=== PATIENT | female | born 1955 | race Caucasian/White ===

== ENCOUNTER 2017-08-07 11:06 | Outpatient (CLI) | payer BC ==
--- NOTE | 2017-08-07 12:59 | MMO ---
BILATERAL DIGITAL SCREENING MAMMOGRAMS: HISTORY: This 62-year-old female presents for digital screening mammography. COMPARISON: 08/02/16, 07/23/15, 01/19/14. This patient's mammogram is interpreted with the assistance of computer-aided detection. Scattered areas of fibroglandular density are noted bilaterally. No direct or indirect evidence of m alignancy. Stable typically benign calcifications in the right breast. There is motion artifact on the left MLO view which needs to be repeated. IMPRESSION: BI-RADS category 0, assessment is incomplete. Needs additional imaging evaluation. Repeat left MLO view is needed because of motion artifact. POS: [facility]
== END 2017-08-07 11:07 | disposition home or self-care (01) ==
LOC: SCSMAMMO 11:06
PROVIDERS: ATTEND Family Medicine
DX: Z12.31 Encounter for screening mammogram for malignant neoplasm of breast (principal)
CPT/HCPCS: 77067; G0202

== ENCOUNTER 2017-08-14 09:42 | Outpatient (CLI) | payer BC ==
--- NOTE | 2017-08-14 11:01 | MMO ---
DIAGNOSTIC LEFT MAMMOGRAM: Date: 08/14/17 Diagnostic exam is performed as recommended from the exam of 08/07/17. The left MLO view is repeated due to motion artifact on the screening exam. FINDINGS: Repeat left MLO shows no significant motion artifact. There is no mass, distortion, or suspicious dav cification. Recommend patient be returned to routine follow-up. IMPRESSION: BIRADS 1: Negative POS: [facility]
== END 2017-08-14 09:43 | disposition home or self-care (01) ==
LOC: MAMMO 09:42
PROVIDERS: ATTEND Family Medicine
DX: R92.8 Other abnormal and inconclusive findings on diagnostic imaging of breast (principal)
CPT/HCPCS: G0206-LT

== ENCOUNTER 2018-03-12 08:52 | Outpatient (CLI) | payer BC, OTHER ==
--- NOTE | 2018-03-12 12:06 | CT ---
ABDOMEN CT WITH AND WITHOUT CONTRAST PELVIC CT WITH AND WITHOUT CONTRAST: History: Microscopic hematuria. Technique: Abdomen and pelvic CT performed with and without IV contrast. Coronal reformatted images a re submitted for interpretation. FINDINGS: ABDOMEN CT: Lung bases are clear. Heart size is normal. No significant pericardial fluid. The descending thoracic aorta and abdominal aorta have an overall normal caliber. No periaortic fat stranding. Gallbladder is unremarkable. Intra and extrahepatic portal vein is patent. There is a cyst in the left hepatic lobe measuring 2.8 x 2.7 cm. The liver, spleen, pancreas, and adr enal glands have appropriate enhancement. No hiatal hernia is noted. No gastrohepatic, retrocrural, or periportal lymphadenopathy. No mass, lymphadenopathy, free air or free fluid. Limited evaluation of the alimentary due to lack of oral contrast. No evidence of bowel obstruction. Ileocecal junction is normal. Minimal diverticulosis without evidence of diverticulitis. Normal calib er appendix. Bilaterally, no hydronephrosis. No perinephric fat stranding. Symmetric enhancement of the kidneys. S ymmetric excretion of the decompressed intrarenal collecting system. Bilateral ureters have a normal caliber. No hydroureter, or periureteral fat stranding. No filling defects in the opacified extrarena l collecting systems. PELVIC CT: No mass, lymphadenopathy, free air or free fluid. Contrast is noted in the dependent portion of the u rinary bladder. Uterus is surgically absent. No lytic or blastic lesions of the osseous structures. IMPRESSION: 1. No evidence of obstructive uropathy. Symmetric enhancement of the kidneys. 2. Unremarkable urinary bladder. POS: [facility]
== END 2018-03-12 08:53 | disposition home or self-care (01) ==
LOC: CT 08:52
PROVIDERS: ATTEND Urology
DX: R31.9 Hematuria, unspecified (principal); Z72.0 Tobacco use
CPT/HCPCS: 74178; 82565

== ENCOUNTER 2018-10-04 08:26 | Outpatient (CLI) | payer BC ==
--- NOTE | 2018-10-04 10:01 | CT ---
ABDOMEN CT WITH CONTRAST: Date: 10/04/18 HISTORY: Evaluate hepatic cyst. COMPARISON: 03/12/18. FINDINGS: There is a 7.0 mm opacity in the middle lobe and a 1.0 cm opacity in the right lower lobe. Both lesio ns are incompletely evaluated. Heart size is normal. No pericardial fluid. Portal vein is patent. Unr emarkable gallbladder. Spleen, pancreas, and adrenal glands have appropriate enhancement. Symmetric e nhancement of the kidneys. No obstructive uropathy. No gastrohepatic, retrocrural, or periportal lymphadenopathy. Redemonstration of a hypodensity in the left hepatic lobe measuring 2.2 x 2.5 cm (previously measurin g 2.7 x 2.7 cm). Attenuation coefficient is 11 Hounsfield units, compatible with a cyst. Additional h epatic lesions are not appreciated. No mesenteric mass, lymphadenopathy, free air, or free fluid. Visualized alimentary canal is unremarkable. No evidence of bowel obstruction. Visualized appendix kimball s a normal caliber. No lytic or blastic lesions in the osseous structures. IMPRESSION: 1. Redemonstration of a hepatic cyst. 2. Indeterminate and incompletely evaluated lesions in the right lung. Dedicated chest CT is recomme nded. CODE T. POS: [facility]
[2018-10-04] MEDS ORDERED: ISOVUE-370 76%-LOCM 1 ML ONE (10:05)
== END 2018-10-04 08:27 | disposition home or self-care (01) ==
LOC: BICCT 08:26
PROVIDERS: ATTEND Family Medicine
DX: K76.89 Other specified diseases of liver (principal); R91.1 Solitary pulmonary nodule
CPT/HCPCS: 74160; 82565

== ENCOUNTER 2018-10-15 12:32 | Outpatient (CLI) | payer BC ==
[2018-10-15] MEDS ORDERED: ISOVUE-370 76%-LOCM 1 ML ONE (13:19)
--- NOTE | 2018-10-15 15:32 | CT ---
CT THORAX WITH IV CONTRAST: 10/15/2018 HISTORY: Lung nodule seen on recent CT scan examination. CT thorax is recommended. COMPARISON: CT abdomen on 10/04/2018. FINDINGS: The previously described pulmonary nodule in the right middle lobe, which abuts the minor fissure, is again seen. No additional noncalcified pulmonary nodule or mass is seen. There is minimal dependent atelectasis. A calcified granuloma is seen in the right middle lobe, as w ell as in the lingula. No pleural effusion is seen. There are calcified mediastinal and hilar lymph nodes. Non-specific nonenlarged lymph nodes are seen within the mediastinum. Vascular calcifications are seen in the coronary arteries, as well as involving the thoracic aorta. The thoracic aorta is normal in caliber. The fluid attenuation cystic lesion in the lateral segment, left hepatic lobe, is again seen, compati ble with a cyst. There has been interval development of a wedge-shaped area of diminished attenuation seen within the superior pole of the spleen, which was not seen on the recent study of 10/04/2018. Findings may be r elated to an area of splenic infarction. The remainder of the visualized upper abdomen demonstrates a normal CT appearance. A hiatal hernia i s again present. The osseous structures are intact. IMPRESSION: 1. Interval development of a wedge-shaped, low density area of absent enhancement within the superio r pole of the spleen. This may represent an area of splenic infarction. 2. Small, pleural-based pulmonary nodule in the right middle lobe which does abut the minor fissure. Follow-up evaluation in six months is recommended. No additional noncalcified pulmonary nodule is seen. 3. Small hiatal hernia. 4. Evidence of prior granulomatous disease. 5. Above findings discussed with Dr. Mona Wadsworth on 10/16/18 at 9:52 hours. POS: [facility]
== END 2018-10-15 12:33 | disposition home or self-care (01) ==
LOC: BICCT 12:32
PROVIDERS: ATTEND Family Medicine
DX: R91.8 Other nonspecific abnormal finding of lung field (principal); K44.9 Diaphragmatic hernia without obstruction or gangrene; D71 Functional disorders of polymorphonuclear neutrophils
CPT/HCPCS: 71260; Q9966

== ENCOUNTER 2019-05-27 10:18 | Outpatient (CLI) | payer BC ==
--- NOTE | 2019-05-27 10:38 | ULT ---
US Renal Bilateral STANDARD History: Chronic kidney disease. Hypertension. Comparison: CT abdomen October 04, 2018 Findings: Real-time grayscale and color evaluation of the kidneys and urinary bladder was performed. Right kidney measures 10.1 x 4.6 x 4 cm and the left kidney measures 9.3 x 5.1 x 4.4 cm. Prevoid urin rabia bladder volume is 120 mL. No renal mass, hydronephrosis, or abnormal calcifications. Impression: Normal renal ultrasound.
== END 2019-05-27 10:19 | disposition home or self-care (01) ==
LOC: BICULT 10:18
PROVIDERS: ATTEND Internal Medicine Nephrology
DX: I12.9 Hypertensive chronic kidney disease with stage 1 through stage 4 chronic kidney disease, or unspecified chronic kidney disease (principal); N18.3 Chronic kidney disease, stage 3 (moderate)
CPT/HCPCS: 76770

== ENCOUNTER 2019-07-31 08:12 | Outpatient (CLI) | payer BC ==
--- NOTE | 2019-07-31 09:33 | CT ---
CT CHEST WITH IV CONTRAST: DATE: 07/31/2019. COMPARISON: 10/15/2018. HISTORY: Reevaluate pulmonary nodule. TECHNIQUE: Axial CT imaging at 3 mm intervals through the chest with IV contrast. Coronal and sagittal reformatt ed imaging obtained. FINDINGS: There is a small sliding-type hiatal hernia present. There is a low-density lesion within the anterior aspect of the left hepatic lobe with Hounsfield uni ts consistent with a cyst measuring 2.3 cm in AP dimension. There is scattered atherosclerotic calcification of the proximal abdominal aorta and its branches. No pleural, pericardial, or mediastinal fluid noted. No axillary, mediastinal, or hilar lymphadenopathy. Calcified lymph nodes are noted in the AP window and subcarinal region, evidence of granulomatous disease. There is atherosclerotic calcification of the aortic arch and coronary arteries. No pneumothorax. No significant pulmonary parenchymal nodule is noted within the right upper or right lower lobe. A ri ght middle lobe granuloma is noted on image 61. There is a stable nodule within the superior lateral anterior aspect of the right middle lobe measuring 7 mm, unchanged when compared to the 2018 study. There is a small nodule within the medial anterior aspect of the left upper lobe abutting the mediast inum measuring approximately 6 mm, stable. There is a stable posterior nodule within the posterior aspect of the left upper lobe on image 35 measuring approximately 6 mm. Small peripheral inferior lef t upper lobe nodule noted on image 59 measuring 6 mm, stable as well. No new pulmonary nodule noted on either side. Review of the osseous structures demonstrates no acute findings. IMPRESSION: Numerous stable pulmonary parenchymal nodules. CT examination in 6-12 months is advised to document s tability. Transcribed Date/Time: 07/31/2019 10:00 AM
[2019-07-31] MEDS ORDERED: Iopamidol-370 76% 500 ML 1 ML ONE (15:07)
== END 2019-07-31 08:13 | disposition home or self-care (01) ==
LOC: BICCT 08:12
PROVIDERS: ATTEND Family Medicine
DX: R91.8 Other nonspecific abnormal finding of lung field (principal)
CPT/HCPCS: 71260; Q9967

== ENCOUNTER 2019-08-11 07:58 | Outpatient (CLI) | payer BC ==
--- NOTE | 2019-08-11 09:06 | MMO ---
Bilateral MAMMO Bilat Screen [facility]. CLINICAL HISTORY: Patient is 64 years old and is seen for screening. The patient has no family history of breast cancer. The patient has no personal history of cancer. VIEWS: The views performed were: bilateral craniocaudal with tomosynthesis and bilateral mediolateral oblique with tomosynthesis. FILMS COMPARED: The present examination has been compared to prior imaging studies performed at [facility] on 07/23/2015, 08/02/2016 and 08/07/2017, and at [facility] on 08/14/2017. This study has been interpreted with the assistance of computer-aided detection. MAMMOGRAM FINDINGS: There are scattered fibroglandular densities. There are no suspicious masses, suspicious calcifications, or new areas of architectural distortion. IMPRESSION: THERE IS NO MAMMOGRAPHIC EVIDENCE OF MALIGNANCY. A ROUTINE FOLLOW-UP MAMMOGRAM IN 1 YEAR IS RECOMMENDED. THE RESULTS OF THIS EXAM WERE SENT TO THE PATIENT. ACR BI-RADS Category 1 - Negative MAMMOGRAPHY NOTE: 1. A negative mammogram report should not delay a biopsy if a dominant of clinically suspicious mass is present. 2. Approximately 10% to 15% of breast cancers are not detected by mammography. 3. Adenosis and dense breasts may obscure an underlying neoplasm. Reported by: YASHIRA TRIPATHI MD Electonically Signed: [id number]
== END 2019-08-11 07:59 | disposition home or self-care (01) ==
LOC: BICMAMMO 07:58
PROVIDERS: ATTEND Family Medicine
DX: Z12.31 Encounter for screening mammogram for malignant neoplasm of breast (principal)
CPT/HCPCS: 77063; 77067

== ENCOUNTER 2020-05-19 09:00 | Outpatient (CLI) | payer MEDICARE, BC ==
--- NOTE | 2020-05-19 09:49 | CT ---
EXAM: CT chest without contrast per low-dose cancer screening protocol HISTORY: History of smoking and nicotine dependence COMPARISON: None TECHNIQUE: Multiple contiguous axial images were obtained in a CT of the chest without contrast per l ow-dose cancer screening protocol. Sagittal and coronal reformats were performed. FINDINGS: Pulmonary nodules: A calcified granuloma seen in the right middle lobe. There is a 6 mm noncalcified nodule in the superior aspect of the right middle lobe. No focal infiltrates are seen. Pleural space: No pneumothorax or pleural effusion are seen. There is a focal area of pleural thicken ing along the mediastinum in the lingula. Heart: The heart is normal in size. Calcifications are seen in the coronary arteries and aorta. Mediastinum: No hilar or mediastinal lymphadenopathy appreciated on this limited noncontrast examinat ion. Calcified hilar and mediastinal lymph nodes are seen. Bones: Degenerative changes in the spine. Visualized subdiaphragmatic structures: 2.9 cm left hepatic cyst. IMPRESSION: Lung RADS category 3-probably benign. A follow-up low-dose CT is recommended in 6 months to follow th e noncalcified right middle lobe nodule.
== END 2020-05-19 09:01 | disposition home or self-care (01) ==
LOC: BICCT 09:00
PROVIDERS: ATTEND Family Medicine
DX: Z12.2 Encounter for screening for malignant neoplasm of respiratory organs (principal); F17.210 Nicotine dependence, cigarettes, uncomplicated; R91.1 Solitary pulmonary nodule
CPT/HCPCS: G0297

== ENCOUNTER 2020-11-10 10:25 | Outpatient (CLI) | payer MEDICARE, BC ==
--- NOTE | 2020-11-10 11:35 | MMO ---
Bilateral MAMMO Bilat Screen [facility]. CLINICAL HISTORY: Patient is 65 years old and is seen for screening. The patient has no family history of breast cancer. The patient has no personal history of cancer. VIEWS: The views performed were: bilateral craniocaudal with tomosynthesis and bilateral mediolateral oblique with tomosynthesis. FILMS COMPARED: The present examination has been compared to prior imaging studies performed at [facility] on 08/02/2016 and 08/07/2017, and at [facility] on 08/14/2017 and 08/11/2019. This study has been interpreted with the assistance of computer-aided detection. MAMMOGRAM FINDINGS: There are scattered fibroglandular densities. There are no suspicious masses, suspicious calcifications, or new areas of architectural distortion. IMPRESSION: THERE IS NO MAMMOGRAPHIC EVIDENCE OF MALIGNANCY. A ROUTINE FOLLOW-UP MAMMOGRAM IN 1 YEAR IS RECOMMENDED. THE RESULTS OF THIS EXAM WERE SENT TO THE PATIENT. ACR BI-RADS Category 1 - Negative MAMMOGRAPHY NOTE: 1. A negative mammogram report should not delay a biopsy if a dominant of clinically suspicious mass is present. 2. Approximately 10% to 15% of breast cancers are not detected by mammography. 3. Adenosis and dense breasts may obscure an underlying neoplasm. Reported by: HOWARD FARRIS MD Electonically Signed: [id number]
--- NOTE | 2020-11-10 12:28 | CT ---
Exam: Noncontrast chest CT; CT lung scan low dose HISTORY:Patient is currently a smoker. Less than 1 pack a day. Patient has smoked for 35 years. Nicot ine dependence. 6 mm nodule noted on the previous screening CT. COMPARISON: 10/15/2018, 05/19/2020. TECHNIQUE: Low-dose screening lung CT is performed utilizing institutional protocol FINDINGS: Lung screening specific (Lung-RADS): 2 - benign appearance or behavior. There is a solid nodule in th e middle lobe which measures 0.7 cm and is unchanged since the examination from 10/04/2018. There is greater than two years of stability. No new or suspicious nodules in the left or right lung parenchym a. Potential significant incidentals (Lung-RADS category S): None Pulmonary incidentals:Stable calcified granuloma in the right lung. Stable mild emphysematous changes and mild mosaic attenuation of the lung parenchyma. Other incidentals: Stable cyst in the liver. Stable small hiatal hernia. Stable atherosclerosis and c oronary artery disease. Stable calcified granulomas. IMPRESSION: 1. Lung-RADS 2 - Benign appearance or behavior. Stable solid nodule in the middle lobe. There is grea ter than two years of stability. 2. Lung-RADS category S: Negative. No new or unknown potential significant incidental findings requir ing urgent additional evaluation 3. Other incidentals as above. Recommendation: Continued routine annual low-dose lung screening CT. Follow-up in one year. Transcribed Date/Time: 11/10/2020 1:06 PM
== END 2020-11-10 10:26 | disposition home or self-care (01) ==
LOC: BICMAMMO 10:25
PROVIDERS: ATTEND Family Medicine
DX: Z12.31 Encounter for screening mammogram for malignant neoplasm of breast (principal); Z12.2 Encounter for screening for malignant neoplasm of respiratory organs; R91.1 Solitary pulmonary nodule; F17.210 Nicotine dependence, cigarettes, uncomplicated; I25.10 Atherosclerotic heart disease of native coronary artery without angina pectoris; K44.9 Diaphragmatic hernia without obstruction or gangrene; I70.90 Unspecified atherosclerosis; J84.10 Pulmonary fibrosis, unspecified; K76.89 Other specified diseases of liver
CPT/HCPCS: 71271; 77063; 77067

== ENCOUNTER 2022-05-04 07:32 | Outpatient (CLI) | payer MEDICARE, BC | END 2022-05-04 07:33 | disposition home or self-care (01) | LOC: BICCT 07:32 | PROVIDERS: ATTEND Family Medicine | DX: Z12.31 Encounter for screening mammogram for malignant neoplasm of breast (principal); Z12.2 Encounter for screening for malignant neoplasm of respiratory organs; Z13.820 Encounter for screening for osteoporosis; R91.8 Other nonspecific abnormal finding of lung field; F17.210 Nicotine dependence, cigarettes, uncomplicated; J98.11 Atelectasis; K44.9 Diaphragmatic hernia without obstruction or gangrene; K76.89 Other specified diseases of liver; M85.89 Other specified disorders of bone density and structure, multiple sites; Z78.0 Asymptomatic menopausal state | CPT/HCPCS: 71271; 77063; 77067; 77080 ==

== ENCOUNTER 2023-06-21 12:51 | Outpatient (CLI) | payer MEDICARE, BC | END 2023-06-21 12:52 | disposition home or self-care (01) | LOC: BICMAMMO 12:51 | PROVIDERS: ATTEND Family Medicine | DX: Z12.31 Encounter for screening mammogram for malignant neoplasm of breast (principal); Z12.2 Encounter for screening for malignant neoplasm of respiratory organs; Z72.0 Tobacco use | CPT/HCPCS: 71271; 77063; 77067 ==

== ENCOUNTER 2025-05-29 13:49 | Outpatient (CLI) | payer MEDICARE ==
[~2025-05-29 13:49] MED LIST: Iopamidol 370 76% 100 ML VIAL ONE
== END 2025-05-29 13:50 | disposition home or self-care (01) ==
LOC: CT 13:49
PROVIDERS: ATTEND Internal Medicine Gastroenterology
DX: K22.89 Other specified disease of esophagus (principal); R91.8 Other nonspecific abnormal finding of lung field; K76.89 Other specified diseases of liver; C77.9 Secondary and unspecified malignant neoplasm of lymph node, unspecified
CPT/HCPCS: 71260; 74160; Q9967

== ENCOUNTER 2025-06-03 10:15 | Outpatient (CLI) | payer MEDICARE | END 2025-06-03 10:16 | disposition home or self-care (01) | LOC: PET 10:15 | PROVIDERS: ATTEND Internal Medicine | DX: C15.5 Malignant neoplasm of lower third of esophagus (principal); C78.89 Secondary malignant neoplasm of other digestive organs; C79.89 Secondary malignant neoplasm of other specified sites | CPT/HCPCS: 78815; A9552 ==

== ENCOUNTER 2025-09-02 09:30 | Outpatient (CLI) | payer MEDICARE | END 2025-09-02 09:31 | disposition home or self-care (01) | LOC: PET 09:30 | PROVIDERS: ATTEND Internal Medicine | DX: C15.8 Malignant neoplasm of overlapping sites of esophagus (principal); C79.51 Secondary malignant neoplasm of bone; Z96.89 Presence of other specified functional implants | CPT/HCPCS: 78815; A9552 ==